=== PATIENT | male | born 1980 | race Caucasian/White ===

== ENCOUNTER 2016-07-23 16:35 | Emergency (ER) | payer BC ==
[2016-07-23] MEDS ORDERED: Sodium Chloride 0.9% 5 ML Syringe FLUSH PRN (16:43)
[2016-07-23] MEDS ORDERED: Sodium Chloride 0.9% 1,000 ML IV SCH (16:45)
[2016-07-23] MEDS ORDERED: LORazepam 2 MG/ML MDV IVPUSH ONE ×2 (16:46→18:00)
--- NOTE | 2016-07-23 17:10 | EDM.PDOC ---
ED HPI GENERAL MEDICAL PROBLEM - General Chief Complaint: Behavioral/Psych Stated Complaint: PANIC ATTACK Time Seen by Provider: 07/23/16 16:43 Source of Information: Reports: Patient, EMS History Limitations: Reports: No limitations - History of Present Illness INITIAL COMMENTS - FREE TEXT/NARRATIVE: PT STATES HE ASKED [employer] TO CALL 911 WHEN HE FELT PANIC ATTACK COMING ON AND COLLAPSED TO GROUND. PT FOUND TO BE IN SINUS TACHYCARDIA BY EMS AND TRANSPORTED TO ER. PT HAS H/O PANIC ATTACKS AND HAD DISAGREEMENT WITH [employer] TODAY. DENIES CP, SOB, N/V, INTENT TO HURT SELF OR OTHERS. Onset: today Onset Date: 07/23/16 Severity: moderate Improves with: Reports: None Worsens with: Reports: None Associated Symptoms: Reports: no other symptoms. Denies: chest pain, fever/ chills, nausea/vomiting, shortness of breath - Related Data Allergies Allergy/AdvReac Type Severity Reaction Status Date / Time No Known Drug Allergies Allergy Cannot Verified 05/13/15 13:08 Remember Home Meds: Home Meds ALPRAZolam [Alprazolam] 0.5 - 1 mg PO BID PRN 07/23/16 [History] PARoxetine HCl [Paxil] 40 mg PO DAILY 07/23/16 [History] Past Medical History Psychiatric History: Reports: Anxiety, Depression - Past Surgical History HEENT Surgical History: Reports: Adenoidectomy, Tonsillectomy Neurological Surgical History: Reports: C-Spine Social & Family History - Alcohol Use Days Per Week of Alcohol Use: 7 Number of Drinks Per Day: 6 Total Drinks Per Week: 42 - Recreational Drug Use Recreational Drug Use: No ED ROS GENERAL - Review of Systems Review Of Systems: ROS reveals no pertinent complaints other than HPI. Constitutional: Reports: no symptoms HEENT: Reports: No symptoms Respiratory: Reports: No Symptoms Cardiovascular: Reports: No symptoms Endocrine: Reports: no symptoms GI/Abdominal: Reports: No symptoms : Reports: no symptoms Musculoskeletal: Reports: no symptoms Skin: Reports: no symptoms Neurological: Reports: No Symptoms Psychiatric: Reports: Agitation, Anxiety. Denies: Homicidal ideation, Suicidal ideation Hematologic/Lymphatic: Reports: no symptoms Immunologic: Reports: no symptoms ED EXAM, GENERAL - Physical Exam Exam: See Below Exam Limited By: No limitations General Appearance: alert, WD/WN, mild distress Eye Exam: bilateral eye: normal inspection Nose: normal inspection, normal mucosa, no blood Throat/Mouth: Normal inspection, Normal oropharynx, No airway compromise Head: atraumatic, normocephalic Neck: normal inspection, supple, non-tender, full range of motion Respiratory/Chest: no respiratory distress, lungs clear, normal breath sounds, no accessory muscle use, chest non-tender Cardiovascular: no murmur, tachycardia GI/Abdominal: normal bowel sounds, soft, non tender Back Exam: normal inspection. No: CVA tenderness (L), CVA tenderness (R) Extremities: normal inspection, normal range of motion, non-tender, no pedal edema Neurological: alert, oriented, CN II-XII intact, normal cognition Psychiatric: anxious Skin Exam: Warm, Dry, Intact, Normal color, No rash Lymphatic: no adenopathy EKG INTERPRETATION EKG Date: 07/23/16 Time: 17:00 Rate (beats/min): 105 ST-T: other (NONSPECIFIC) Comparison: NA - no prior EKG EKG Interpretation Comments: SINUS TACHYCARDIA Course - Vital Signs Last Recorded V/S: Last Vital Signs Temp 98.2 F 07/23/16 16:43 Pulse 113 H 07/23/16 16:43 Resp 21 H 07/23/16 16:43 BP 207/110 H 07/23/16 16:43 Pulse Ox 95 07/23/16 16:43 - Orders/Labs/Meds Orders: Active Orders 24 hr Category Date Time Status EKG Documentation Completion [RC] ASDIRECTED Care 07/23/16 16:45 Ordered Peripheral IV Care [RC] . DIRECTED Care 07/23/16 16:45 Ordered Chest 1V Frontal [CR] Stat Exams 07/23/16 16:43 Ordered COMPREHENSIVE METABOLIC PN,CMP [CHEM] Stat Lab 07/23/16 16:44 Ordered DRUG SCREEN, URINE [URCHEM] Stat Lab 07/23/16 16:47 Uncollected ETHANOL BLOOD MEDICAL [CHEM] Stat Lab 07/23/16 16:43 Ordered TROPONIN I [CHEM] Stat Lab 07/23/16 16:44 Ordered UA W/MICROSCOPIC [URIN] Stat Lab 07/23/16 16:44 Uncollected Sodium Chloride 0.9% [Normal Saline] 1,000 ml Med 07/23/16 16:45 Ordered IV .BOLUS Sodium Chloride 0.9% [Syrex Flush] Med 07/23/16 16:43 Ordered 5 ml FLUSH Q8HR PRN Peripheral IV Insertion Adult [OM.PC] Stat Oth 07/23/16 16:43 Ordered EKG 12 Lead [EK] Stat Ther 07/23/16 16:43 Ordered Medication Orders Sodium Chloride (Normal Saline) 1,000 mls @ 999 mls/hr IV .BOLUS BRUNO Sodium Chloride (Syrex Flush) 5 ml FLUSH Q8HR PRN PRN Reason: Keep Vein Open Labs: Laboratory Tests 07/23/16 Range/Units 16:10 WBC 6.3 (5.0-10.0) 10^3/uL RBC 5.50 (4.50-6.00) 10^6/uL Hgb 17.7 H (13.0-17.0) g/dL Hct 52.6 H (40.0-52.0) % MCV 95.6 H (82.0-92.0) fL MCH 32.1 H (27.0-31.0) pg MCHC 33.6 (32.0-36.0) g/dL RDW 12.9 (11.5-14.5) % Plt Count 173 (150-300) 10^3/uL MPV 7.5 (7.4-10.4) fL Neut % (Auto) 67.2 (50.0-70.0) % Lymph % (Auto) 20.9 (20.0-40.0) % [place] % (Auto) 10.4 H (2.0-8.0) % Eos % (Auto) 0.6 L (1.0-3.0) % Baso % (Auto) 0.9 (0.0-1.0) % Neut # (Auto) 4.2 (2.5-7.0) 10^3/uL Lymph # (Auto) 1.3 (1.0-4.0) 10^3/uL [place] # (Auto) 0.7 (0.1-0.8) 10^3/uL Eos # (Auto) 0.0 L (0.1-0.3) 10^3/uL Baso # (Auto) 0.1 (0.0-0.1) 10^3/uL Meds: Medications Generic Name Dose Route Start Last Admin Trade Name Freq PRN Reason Stop Dose Admin Sodium Chloride 1,000 mls @ 999 mls/hr 07/23/16 16:45 Normal Saline IV .BOLUS BRUNO Sodium Chloride 5 ml 07/23/16 16:43 Syrex Flush FLUSH Q8HR PRN Keep Vein Open Discontinued Medications Generic Name Dose Route Start Last Admin Trade Name Joseq PRN Reason Stop Dose Admin Lorazepam 1 mg 07/23/16 16:46 07/23/16 16:51 Ativan IVPUSH 07/23/16 16:47 1 mg ONETIME ONE Administration - Radiology Interpretation Free Text/Narrative:: CXR NEGATIVE FOR ACUTE PROCESS - Re-Assessments/Exams Free Text/Narrative Re-Assessment/Exam: 07/23/16 18:52 PT AFEBRILE, NONTOXIC APPEARING, VSS, FEELS MUCH BETTER, FAMILY AT BEDSIDE. REPEAT EKG SHOWS NSR AT 94 WITH NO S-T CHANGES 07/23/16 18:56 Departure - Departure Time of Disposition: 18:54 Disposition: Home, Self-Care 01 Condition: good Clinical Impression: Anxiety attack, Anxiety, Panic attack Instructions: Panic Attacks, [id number] Additional Instructions: FOLLOW UP AT [facility]. RETURN TO ER IF SYMPTOMS CONTINUE - My Orders Last 24 Hours: My Active Orders 07/23/16 16:43 Chest 1V Frontal [CR] Stat ETHANOL BLOOD MEDICAL [CHEM] Stat Sodium Chloride 0.9% [Syrex Flush] 5 ml FLUSH Q8HR PRN Peripheral IV Insertion Adult [OM.PC] Stat EKG 12 Lead [EK] Stat 07/23/16 16:44 COMPREHENSIVE METABOLIC PN,CMP [CHEM] Stat TROPONIN I [CHEM] Stat UA W/MICROSCOPIC [URIN] Stat 07/23/16 16:45 EKG Documentation Completion [RC] ASDIRECTED Peripheral IV Care [RC] . DIRECTED Sodium Chloride 0.9% [Normal Saline] 1,000 ml IV .BOLUS 07/23/16 16:47 DRUG SCREEN, URINE [URCHEM] Stat - Assessment/Plan Last 24 Hours: My Active Orders 07/23/16 16:43 Chest 1V Frontal [CR] Stat ETHANOL BLOOD MEDICAL [CHEM] Stat Sodium Chloride 0.9% [Syrex Flush] 5 ml FLUSH Q8HR PRN Peripheral IV Insertion Adult [OM.PC] Stat EKG 12 Lead [EK] Stat 07/23/16 16:44 COMPREHENSIVE METABOLIC PN,CMP [CHEM] Stat TROPONIN I [CHEM] Stat UA W/MICROSCOPIC [URIN] Stat 07/23/16 16:45 EKG Documentation Completion [RC] ASDIRECTED Peripheral IV Care [RC] . DIRECTED Sodium Chloride 0.9% [Normal Saline] 1,000 ml IV .BOLUS 07/23/16 16:47 DRUG SCREEN, URINE [URCHEM] Stat Assessment:: ANXIETY / PANIC ATTACK Plan: WILL F/U WITH [facility] TOMORROW
[2016-07-23 17:17] LABS: CHLORIDE,CL 91 mmol/L (98-115); SODIUM,NA 133 mmol/L (136-145)
[2016-07-23 17:44] VITALS: BP 173/76
== END 2016-07-23 19:15 | disposition home or self-care (01) ==
LOC: KA.ED 16:35
DX: F41.0 Panic disorder [episodic paroxysmal anxiety] (principal); F32.9 Major depressive disorder, single episode, unspecified; Z98.890 Other specified postprocedural states; Z79.899 Other long term (current) drug therapy
CPT/HCPCS: 71010; 80053; 80305; 81001; 84484; 85025; 96361; 96374; 96376; 99284; G0480; J2060; J7030; 93005

== ENCOUNTER 2019-01-19 10:40 | Emergency (ER) | payer BC ==
[2019-01-19 10:59] VITALS: BP 115/78; PULSE 106
[2019-01-19] MEDS: LORazepam 0.5 MG Tab PO ONE (11:07)
--- NOTE | 2019-01-19 11:16 | EDM.PDOC ---
ED HPI GENERAL MEDICAL PROBLEM - General Chief Complaint: General Stated Complaint: PANIC ATTACK Time Seen by Provider: 01/19/19 11:01 Source of Information: Reports: Patient History Limitations: Reports: No Limitations - History of Present Illness INITIAL COMMENTS - FREE TEXT/NARRATIVE: PATIENT'S A 38-YEAR-OLD GENTLEMAN WHO PRESENTS TO THE EMERGENCY DEPARTMENT THIS MORNING WITH A COMPLAINT OF PANIC ATTACK. PATIENT HAS A LONG-STANDING HISTORY OF ANXIETY AND WAS PREVIOUSLY ON XANAX. PATIENT STATES THAT HE RAN OUT OF XANAX 4 DAYS AGO. OVER LAST 4 DAYS, GRADUALLY BECOMING MORE ANXIOUS AND'S MORNING HAD A PANIC ATTACK. PATIENT DENIES CHEST PAIN, SHORTNESS OF BREATH, NAUSEA, VOMITING, ABDOMINAL PAIN, ANY INJURY, INTENT TO HURT SELF OR OTHERS. Onset: Gradual Duration: Day(s): Severity: Moderate Improves with: Reports: None Worsens with: Reports: None Associated Symptoms: Reports: No Other Symptoms. Denies: Chest Pain, Fever/ Chills, Headaches, Nausea/Vomiting, Shortness of Breath - Related Data Allergies Allergy/AdvReac Type Severity Reaction Status Date / Time No Known Drug Allergies Allergy Cannot Verified 07/24/16 10:04 Remember Home Meds: Home Meds ALPRAZolam [Alprazolam] 0.5 - 1 mg PO BID PRN 07/23/16 [History] PARoxetine HCl [Paxil] 40 mg PO DAILY 07/23/16 [History] hydroCHLOROthiazide [Hydrochlorothiazide] 50 mg PO DAILY 06/25/18 [History] Past Medical History Cardiovascular History: Reports: Hypertension Respiratory History: Reports: None Gastrointestinal History: Reports: None Genitourinary History: Reports: None Musculoskeletal History: Reports: Fracture Neurological History: Reports: Concussion, Head Trauma, Seizure Psychiatric History: Reports: Anxiety, Depression Endocrine/Metabolic History: Reports: None Immunologic History: Reports: None Oncologic (Cancer) History: Reports: None Dermatologic History: Reports: None - Infectious Disease History Infectious Disease History: Reports: Chicken Pox - Past Surgical History HEENT Surgical History: Reports: Adenoidectomy, Tonsillectomy Neurological Surgical History: Reports: C-Spine Social & Family History - Caffeine Use Caffeine Use: Reports: Soda ED ROS GENERAL - Review of Systems Review Of Systems: ROS reveals no pertinent complaints other than HPI. Constitutional: Reports: No Symptoms HEENT: Reports: No Symptoms Respiratory: Reports: No Symptoms Cardiovascular: Reports: No Symptoms Endocrine: Reports: No Symptoms GI/Abdominal: Reports: No Symptoms : Reports: No Symptoms Musculoskeletal: Reports: No Symptoms Skin: Reports: No Symptoms Neurological: Reports: No Symptoms Psychiatric: Reports: Anxiety. Denies: Homicidal Ideation, Suicidal Ideation Hematologic/Lymphatic: Reports: No Symptoms Immunologic: Reports: No Symptoms ED EXAM, GENERAL - Physical Exam Exam: See Below Exam Limited By: No Limitations General Appearance: Alert, WD/WN, Mild Distress Eye Exam: Bilateral Eye: Normal Inspection Nose: Normal Inspection, No Blood Throat/Mouth: Normal Inspection, Normal Oropharynx, No Airway Compromise Head: Atraumatic, Normocephalic Neck: Normal Inspection, Supple Respiratory/Chest: No Respiratory Distress, Lungs Clear, Normal Breath Sounds, No Accessory Muscle Use, Chest Non-Tender Cardiovascular: Regular Rate, Rhythm, No Murmur GI/Abdominal: Normal Bowel Sounds, Soft, Non-Tender Back Exam: Normal Inspection Extremities: Normal Inspection, No Pedal Edema Neurological: Alert, Oriented, Normal Cognition Psychiatric: Anxious Skin Exam: Warm, Dry, Intact, Normal Color, No Rash Course - Vital Signs Last Recorded V/S: Last Vital Signs Temp 97.2 F 01/19/19 10:56 Pulse 106 H 01/19/19 10:56 Resp 20 01/19/19 10:56 BP 115/78 01/19/19 10:56 Pulse Ox 98 01/19/19 10:56 - Orders/Labs/Meds Meds: Medications Discontinued Medications Generic Name Dose Route Start Last Admin Trade Name Gagan PRN Reason Stop Dose Admin Lorazepam 2 mg 01/19/19 11:01 Ativan PO 01/19/19 11:02 ONETIME ONE - Re-Assessments/Exams Free Text/Narrative Re-Assessment/Exam: 01/19/19 11:44 Patient afebrile, vital signs stable, 2 mg Ativan given in ER, anxiety, mostly relieved. Patient has family members in [place], and is interested in having outpatient therapy at [facility]. Patient does not want to be sent up there now but will present tomorrow. Patient is acting appropriately, denies suicidal ideation Departure - Departure Time of Disposition: 11:44 Disposition: Home, Self-Care 01 Condition: Good Clinical Impression: Anxiety, Panic attack - Discharge Information Instructions: Panic Attack, [id number], Generalized Anxiety Disorder, Adult Referrals: Sweta De Dios PA-C [Primary Care Provider] - Additional Instructions: Follow-up at tomorrow as indicated. Return to emergency department sooner if symptoms continue or worsen. Take medication as directed. - Assessment/Plan Assessment:: Anxiety Plan: Patient follow-up with PCP and is considering presenting to in [place]
== END 2019-01-19 11:50 | disposition home or self-care (01) ==
LOC: KA.ED 10:40
DX: F41.0 Panic disorder [episodic paroxysmal anxiety] (principal); I10 Essential (primary) hypertension; F41.9 Anxiety disorder, unspecified; F32.9 Major depressive disorder, single episode, unspecified; Z79.899 Other long term (current) drug therapy
CPT/HCPCS: 99283; A9270

== ENCOUNTER 2019-09-13 07:45 | Emergency (ER) | payer BC ==
[2019-09-13] MEDS: LORazepam 0.5 MG Tab PO ONE ×2 (08:02→08:51)
--- NOTE | 2019-09-13 08:40 | EDM.PDOCBH ---
ED HPI GENERAL MEDICAL PROBLEM - General Chief Complaint: Behavioral/Psych Stated Complaint: ANXIETY ATTACK Time Seen by Provider: 09/13/19 08:19 Source of Information: Reports: Patient History Limitations: Reports: No Limitations - History of Present Illness INITIAL COMMENTS - FREE TEXT/NARRATIVE: Patient presents having a panic attack. It started 12-13 hours ago. He feels very anxious and nervous. He had some sweating too. Denies any pain with it. He says he has dealt with panic attacks about every 6 months for 25 years ( since his parents did when he was 10). He hasn't taken anything for it today but in the past has used Alprazolam. Right now he is dealing with a lot of stress and has no one to talk to. He is open to talking with a professional. - Related Data Allergies Allergy/AdvReac Type Severity Reaction Status Date / Time No Known Drug Allergies Allergy Cannot Verified 09/13/19 08:00 Remember Home Meds: Home Meds PARoxetine HCL [Paxil] 40 mg PO DAILY 07/23/16 [History] hydroCHLOROthiazide [Hydrochlorothiazide] 50 mg PO DAILY 06/25/18 [History] lisinopriL [Lisinopril] 10 mg PO DAILY 09/13/19 [History] traZODone HCl [Trazodone HCl] 50 - 100 mg PO BEDTIME PRN 09/13/19 [History] Past Medical History Cardiovascular History: Reports: Hypertension Respiratory History: Reports: None Gastrointestinal History: Reports: None Genitourinary History: Reports: None Musculoskeletal History: Reports: Fracture Neurological History: Reports: Concussion, Head Trauma, Seizure Psychiatric History: Reports: Anxiety, Depression, Panic Attack Endocrine/Metabolic History: Reports: None Immunologic History: Reports: None Oncologic (Cancer) History: Reports: None Dermatologic History: Reports: None - Infectious Disease History Infectious Disease History: Reports: Chicken Pox - Past Surgical History HEENT Surgical History: Reports: Adenoidectomy, Tonsillectomy Neurological Surgical History: Reports: C-Spine Social & Family History - Family History Family Medical History: Noncontributory - Tobacco Use Smoking Status *Q: Never Smoker - Caffeine Use Caffeine Use: Reports: Coffee Other Caffeine Use: rarely - Recreational Drug Use Recreational Drug Use: No ED ROS GENERAL - Review of Systems Review Of Systems: See Below Constitutional: Denies: Fever, Chills, Weakness HEENT: Denies: Ear Pain, Throat Pain, Vision Change Respiratory: Denies: Shortness of Breath, Cough Cardiovascular: Denies: Chest Pain, Lightheadedness, Syncope Endocrine: Denies: Fatigue GI/Abdominal: Denies: Abdominal Pain, Diarrhea, Vomiting Musculoskeletal: Denies: Neck Pain, Shoulder Pain, Arm Pain, Back Pain, Hand Pain, Leg Pain, Foot Pain Skin: Denies: Cyanosis, Jaundice, Mottled, Pallor, Diaphoresis Neurological: Denies: Confusion, Dizziness, Headache, Seizure, Syncope, Trouble Speaking, Difficulty Walking Psychiatric: Reports: Anxiety. Denies: Agitation, Confusion, Suicidal Ideation ED EXAM, BEHAVIORAL HEALTH - Physical Exam Exam: See Below Exam Limited By: No Limitations General Appearance: Alert, WD/WN, No Apparent Distress Eye Exam: Bilateral Eye: EOMI, Normal Inspection, PERRL Ears: Normal External Exam, Hearing Grossly Normal Nose: Normal Inspection, No Blood Throat/Mouth: Normal Inspection, Normal Lips, Normal Teeth, Normal Voice, No Airway Compromise Head: Atraumatic, Normocephalic Neck: Normal Inspection, Full Range of Motion Respiratory/Chest: No Respiratory Distress, Lungs Clear, Normal Breath Sounds, No Accessory Muscle Use Cardiovascular: Regular Rate, Rhythm (a little tachy initially) Back Exam: Normal Inspection, Full Range of Motion Extremities: Normal Inspection, Normal Range of Motion Neurological: Alert, CN II-XII Intact, Normal Cognition, No Motor/Sensory Deficits, Oriented x 3 Psychiatric: Alert, Normal Affect, Normal Cognition, Oriented, Other (anxious). No: Flat Affect, Tearful, Agitated, Disoriented, Inattentive, Non- Communicative, Poor Eye Contact, Uncooperative, Withdrawn, Flight of Ideas, Homicidal Thoughts, Suicidal Plan, Suicidal Thoughts, Threatening Behavior Skin Exam: Warm, Dry, Intact, Normal color, No rash COURSE, BEHAVIORAL HEALTH COMP - Course Vital Signs: Last Vital Signs Temp 94.7 F L 09/13/19 07:47 Pulse 119 H 09/13/19 07:47 Resp 24 H 09/13/19 07:47 BP 144/97 H 09/13/19 07:47 Pulse Ox 98 09/13/19 07:47 Orders, Labs, Meds: Medications Discontinued Medications Generic Name Dose Route Start Last Admin Trade Name Gagan PRN Reason Stop Dose Admin Lorazepam 1 mg 09/13/19 07:56 09/13/19 08:02 Ativan PO 09/13/19 07:57 1 mg ONETIME ONE Administration Re-Assessment/Re-Exam: Patient has had Lorazepam 1 mg twice in ER and is significantly improved. He is feeling okay to go home now and is having a friend pick him up. He doesn't want to see the counselor today as he just wants to sleep. He will call her for appointment if he doesn't hear from her. We will give him a few doses of Lorazepam today. Discharged to home in stable condition. Departure - Departure Time of Disposition: Disposition: Home, Self-Care 01 Condition: Good Clinical Impression: Panic attack, Anxiety - Discharge Information Instructions: Panic Attack, [id number] Additional Instructions: Drink 8 cups of water daily. Try to rest today, you may use Melatonin 1-3 mg to help with this. You can take Lorazepam 1 mg if needed for panic or anxiety. Counselor Saul Maxwell may call you to schedule a visit or you can call her at if you don't hear from her today. I recommend follow up with your PCP, Sweta De Dios for recheck and to discuss possible medical treatment options for your anxiety if needed. Sepsis Event Note - Evaluation Sepsis Screening Result: No Definite Risk - Focused Exam Vital Signs: Vital Signs Temp Pulse Resp BP Pulse Ox 09/13/19 07:47 94.7 F L 119 H 24 H 144/97 H 98 Date Exam was Performed: 09/13/19 Time Exam was Performed: 08:30
[2019-09-13 09:44] VITALS: BP 129/96; PULSE 90
== END 2019-09-13 09:25 | disposition home or self-care (01) ==
LOC: KA.ED 07:45
DX: F41.0 Panic disorder [episodic paroxysmal anxiety] (principal); I10 Essential (primary) hypertension; F32.9 Major depressive disorder, single episode, unspecified; Z79.899 Other long term (current) drug therapy
CPT/HCPCS: 99283; A9270

== ENCOUNTER 2020-03-05 14:22 | Emergency (ER) | payer BC, OTHER ==
[2020-03-05] MEDS ORDERED: Ketorolac 60 MG/2 ML SDV IM ONE (14:33)
--- NOTE | 2020-03-05 14:43 | EDM.PDOC ---
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 Lumps of dirt struck the left chest with the discomfort, significant pain to the right shoulder limiting his motion. No loss consciousness and no other complaint acknowledged. Onset: Today, Sudden Duration: Hour(s): Location: Reports: Chest, Upper Extremity, Right Quality: Reports: Pressure, Sharp Severity: Moderate Improves with: Reports: None Worsens with: Reports: Movement Context: Reports: Other (Work related) Right Shoulder Pain Score (Numeric/FACES): 8 - Related Data Allergies Allergy/AdvReac Type Severity Reaction Status Date / Time No Known Drug Allergies Allergy Cannot Verified 03/05/20 14:47 Remember Home Meds: Home Meds PARoxetine HCL [Paxil] 40 mg PO DAILY 07/23/16 [History] hydroCHLOROthiazide [Hydrochlorothiazide] 50 mg PO DAILY 06/25/18 [History] lisinopriL [Lisinopril] 10 mg PO DAILY 09/13/19 [History] traZODone HCl [Trazodone HCl] 50 - 100 mg PO BEDTIME PRN 09/13/19 [History] Hydrocodone/Acetaminophen [Hydrocodone-Acetamin 10-325 mg] 1 each PO Q6HR PRN 7 Days #28 tablet 03/05/20 [Rx] Ibuprofen 800 mg PO TIDMEALS 10 Days #30 tablet 03/05/20 [Rx] Past Medical History Cardiovascular History: Reports: Hypertension Respiratory History: Reports: None Gastrointestinal History: Reports: None Genitourinary History: Reports: None Musculoskeletal History: Reports: Fracture Neurological History: Reports: Concussion, Head Trauma, Seizure Psychiatric History: Reports: Anxiety, Depression, Panic Attack Endocrine/Metabolic History: Reports: None Immunologic History: Reports: None Oncologic (Cancer) History: Reports: None Dermatologic History: Reports: None - Infectious Disease History Infectious Disease History: Reports: Chicken Pox - Past Surgical History HEENT Surgical History: Reports: Adenoidectomy, Tonsillectomy Neurological Surgical History: Reports: C-Spine Social & Family History - Family History Family Medical History: No Pertinent Family History - Caffeine Use Caffeine Use: Reports: Coffee Other Caffeine Use: rarely ED ROS GENERAL - Review of Systems Review Of Systems: Comprehensive ROS is negative, except as noted in HPI. ED EXAM, GENERAL - Physical Exam Exam: See Below Free Text/Narrative:: Alert, oriented, in mild painful distress. HEENT is negative to discharge or deformity. PERRLA no icterus, no injection, no petechia. Neck is soft supple no rigidity no lymphadenopathy noted, no spinal tenderness. Thorax is clear, no wheezes, no crackles, no tenderness of significance to the chest wall on the right side. Mild tissue tenderness on the left side where he was struck by the direct lumps. Cardiac is S1 is 2 I do not appreciate murmur. Radial pulses are present and correlate with apical heart rate. Motion to the forearm hand and wrist are intact bilateral. Mild numbness sensation with positioning of the right shoulder to the anterior forearm. Tenderness to the right anterior, superior, and posterior shoulder girdle to palpation. There is tenderness to the proximal deltoid of the right shoulder. Limited range of motion of the right shoulder with rotation limited. Unable to raise the humerus with abduction. X-rays obtained show no occult fracture, nor dislocation. Course - Vital Signs Last Recorded V/S: Last Vital Signs Temp 36.6 C 03/05/20 15:12 Pulse 70 03/05/20 15:12 Resp 18 03/05/20 15:12 BP 139/94 H 03/05/20 15:12 Pulse Ox 100 03/05/20 15:12 - Orders/Labs/Meds Orders: Active Orders 24 hr Category Date Time Status Consult to Physical Therapy [PT Evaluation and Cons 03/05/20 15:10 Ordered Treatment] [CONS] Routine Shoulder wo Cont Rt [MR] Stat Exams 03/05/20 15:11 Ordered Meds: Medications Discontinued Medications Generic Name Dose Route Start Last Admin Trade Name Freq PRN Reason Stop Dose Admin Ketorolac Tromethamine 60 mg 03/05/20 14:33 03/05/20 14:37 Toradol IM 03/05/20 14:34 60 mg ONETIME ONE Administration - Radiology Interpretation Free Text/Narrative:: No evidence of fracture nor dislocation. Over read pending Departure - Departure Time of Disposition: 15:02 Disposition: Home, Self-Care 01 Condition: Good Clinical Impression: Right shoulder strain, Rotator cuff dysfunction, Encounter related to worker's compensation claim - Discharge Information *PRESCRIPTION DRUG MONITORING PROGRAM REVIEWED*: Not Applicable *COPY OF PRESCRIPTION DRUG MONITORING REPORT IN PATIENT NATHALY: Not Applicable Prescriptions: Hydrocodone/Acetaminophen [Hydrocodone-Acetamin 10-325 mg] 1 each PO Q6HR PRN 7 Days #28 tablet PRN Reason: Pain (Moderate 4-6) Ibuprofen 800 mg PO TIDMEALS 10 Days #30 tablet Referrals: Sweta De Dios PA-C [Primary Care Provider] - Forms: ED Department Discharge Additional Instructions: X-rays show no fracture of the bone nor ribs. We will process paperwork to [facility] as you will need an MRI of your right shoulder. Limit your activity as tolerated. Ice and heat rotation to the shoulder and chest area. We will send a prescription to your pharmacy for pain medication that you may take to help your discomfort for severe pain. You may take Tylenol or ibuprofen limiting the total use of ibuprofen to 3000 mg/day. Make sure to have good fluid intake, predominantly water, to flush metabolites from your system. Contact your clinic for follow-up, or contact the hospital during nonclinic hours if severe pain should worsen, or limit your breathing. Sepsis Event Note (ED) - Focused Exam Vital Signs: Vital Signs Temp Pulse Resp BP Pulse Ox 03/05/20 15:12 36.6 C 70 18 139/94 H 100 03/05/20 14:42 36.2 C 78 20 145/89 H 100 - Problem List & Annotations (1) Right shoulder strain SNOMED Code(s): 922628035 Code(s): S46.911A - STRAIN UNSP MUSC/FASC/TEND AT SHLDR/UP ARM, RIGHT ARM, INIT Status: Acute Priority: High Current Visit: Yes Qualifiers: Encounter type: initial encounter Qualified Code(s): S46.911A - Strain of unspecified muscle, fascia and tendon at shoulder and upper arm level, right arm, initial encounter (2) Rotator cuff dysfunction SNOMED Code(s): 354776318 Code(s): M67.919 - UNSP DISORDER OF SYNOVIUM AND TENDON, UNSPECIFIED SHOULDER Status: Acute Priority: High Current Visit: Yes Qualifiers: Laterality: right Qualified Code(s): M67.911 - Unspecified disorder of synovium and tendon, right shoulder (3) Encounter related to worker's compensation claim SNOMED Code(s): 736781625 Code(s): Z02.6 - ENCOUNTER FOR EXAMINATION FOR INSURANCE PURPOSES Status: Acute Priority: High Current Visit: Yes - Problem List Review Problem List Initiated/Reviewed/Updated: Yes - My Orders Last 24 Hours: My Active Orders 03/05/20 15:10 Consult to Physical Therapy [PT Evaluation and Treatment] [CONS] Routine 03/05/20 15:11 Shoulder wo Cont Rt [MR] Stat - Assessment/Plan Last 24 Hours: My Active Orders 03/05/20 15:10 Consult to Physical Therapy [PT Evaluation and Treatment] [CONS] Routine 03/05/20 15:11 Shoulder wo Cont Rt [MR] Stat Plan: X-rays show no fracture of the bone nor ribs. We will process paperwork to [facility] as you will need an MRI of your right shoulder. Limit your activity as tolerated. Ice and heat rotation to the shoulder and chest area. We will send a prescription to your pharmacy for pain medication that you may take to help your discomfort for severe pain. You may take Tylenol or ibuprofen limiting the total use of ibuprofen to 3000 mg/day. Make sure to have good fluid intake, predominantly water, to flush metabolites from your system. Contact your clinic for follow-up, or contact the hospital during nonclinic hours if severe pain should worsen, or limit your breathing.
--- NOTE | 2020-03-05 15:10 | CR ---
[id number] RAD/RAD Chest PA And Lateral EXAM: RAD Chest PA And Lateral CLINICAL DATA: TRAUMA COMPARISON: CORRELATION IS MADE WITH JULY 23, 2016 FINDINGS: The lungs are clear. The cardiomediastinal contour is normal. The regional bones and soft tissues are unremarkable. IMPRESSION: NO ACUTE PROCESS. Shabbir Martinez MD 03/05/20 1585 Thank you for allowing us to participate in the care of your patient.
--- NOTE | 2020-03-05 15:10 | CR ---
[id number] RAD/RAD Shoulder Right 2V Min EXAM: RAD Shoulder Right 2V Min CLINICAL DATA: TRAUMA COMPARISON: NO PREVIOUS SIMILAR EXAM IS AVAILABLE. FINDINGS: Calcification is seen between the acromion and distal clavicle No fracture or dislocation is seen. There is no radiopaque foreign body in the soft tissues. There is no air in the soft tissues. There is no cortical thickening or periosteal reaction either. IMPRESSION: DEGENERATIVE CHANGES OF RIGHT ACROMIOCLAVICULAR JOINT Shabbir Martinez MD 03/05/20 2145 Thank you for allowing us to participate in the care of your patient.
[2020-03-05 15:15] VITALS: BP 139/94; PULSE 70
== END 2020-03-05 15:25 | disposition home or self-care (01) ==
LOC: KA.ED 14:22
DX: S46.911A Strain of unspecified muscle, fascia and tendon at shoulder and upper arm level, right arm, initial encounter (principal); I10 Essential (primary) hypertension; F41.9 Anxiety disorder, unspecified; F32.9 Major depressive disorder, single episode, unspecified; Z79.899 Other long term (current) drug therapy; W22.8XXA Striking against or struck by other objects, initial encounter; Y92.89 Other specified places as the place of occurrence of the external cause; Y99.0 Civilian activity done for income or pay
CPT/HCPCS: 71046; 73030-RT; 96372; 99283; 99284-25; J1885

== ENCOUNTER 2020-09-24 11:42 | Emergency (ER) | payer BC, OTHER ==
[2020-09-24] MEDS: LORazepam 2 MG/ML SDV IVPUSH ONE (11:52)
--- NOTE | 2020-09-24 12:01 | EDM.PDOC ---
ED HPI GENERAL MEDICAL PROBLEM - General Chief Complaint: General Stated Complaint: ANXIETY ATTACK Time Seen by Provider: 09/24/20 11:44 Source of Information: Reports: Patient, Significant Other History Limitations: Reports: No Limitations - History of Present Illness INITIAL COMMENTS - FREE TEXT/NARRATIVE: Patient presents with a "panic attack". He has had them several times in the past and has a bad one about once a year. This started two hours ago he says. He takes Paxil but missed it today. When he has an attack like this he says it responds to benzodiazepines. He has chest pain which is consistent with past episodes. He also has some numbness in fingers bilat. No history of heart disease or problems. - Related Data Allergies Allergy/AdvReac Type Severity Reaction Status Date / Time No Known Drug Allergies Allergy Cannot Verified 09/24/20 12:00 Remember Home Meds: Home Meds PARoxetine HCL [Paxil] 40 mg PO DAILY 07/23/16 [History] hydroCHLOROthiazide [Hydrochlorothiazide] 50 mg PO DAILY 06/25/18 [History] lisinopriL [Lisinopril] 10 mg PO DAILY 09/13/19 [History] traZODone HCl [Trazodone HCl] 50 - 100 mg PO BEDTIME PRN 09/13/19 [History] Hydrocodone/Acetaminophen [Hydrocodone-Acetamin 10-325 mg] 1 each PO Q6HR PRN 7 Days #28 tablet 03/05/20 [Rx] Ibuprofen 800 mg PO TIDMEALS 10 Days #30 tablet 03/05/20 [Rx] Past Medical History Cardiovascular History: Reports: Hypertension Respiratory History: Reports: None Gastrointestinal History: Reports: None Genitourinary History: Reports: None Musculoskeletal History: Reports: Fracture Neurological History: Reports: Concussion, Head Trauma, Seizure Psychiatric History: Reports: Anxiety, Depression, Panic Attack Endocrine/Metabolic History: Reports: None Immunologic History: Reports: None Oncologic (Cancer) History: Reports: None Dermatologic History: Reports: None - Infectious Disease History Infectious Disease History: Reports: Chicken Pox - Past Surgical History HEENT Surgical History: Reports: Adenoidectomy, Tonsillectomy GI Surgical History: Reports: None Endocrine Surgical History: Reports: None Neurological Surgical History: Reports: C-Spine Social & Family History - Family History Family Medical History: No Pertinent Family History - Caffeine Use Caffeine Use: Reports: Coffee Other Caffeine Use: 3-4 cups of cofee a day. ED ROS GENERAL - Review of Systems Review Of Systems: See Below Constitutional: Denies: Fever, Chills, Malaise, Weakness HEENT: Reports: No Symptoms Respiratory: Denies: Shortness of Breath Cardiovascular: Reports: Chest Pain, Lightheadedness (from hyperventilating). Denies: Syncope GI/Abdominal: Denies: Abdominal Pain, Vomiting : Reports: No Symptoms Musculoskeletal: Reports: No Symptoms Skin: Reports: No Symptoms Neurological: Reports: Tingling (fingers). Denies: Confusion, Dizziness, Headache, Seizure, Syncope, Trouble Speaking, Difficulty Walking Psychiatric: Reports: Anxiety. Denies: Confusion ED EXAM, GENERAL - Physical Exam Exam: See Below Exam Limited By: No Limitations General Appearance: Alert, WD/WN, No Apparent Distress Eye Exam: Bilateral Eye: EOMI, Normal Inspection, PERRL Ears: Normal External Exam, Hearing Grossly Normal Nose: Normal Inspection, No Blood Throat/Mouth: Normal Inspection, Normal Lips, Normal Voice, No Airway Compromise Head: Atraumatic, Normocephalic Neck: Normal Inspection, Full Range of Motion Respiratory/Chest: Lungs Clear, No Accessory Muscle Use, Wheezing (mildly present with the significant tachypnea). No: Stridor Cardiovascular: Normal Peripheral Pulses, Regular Rate, Rhythm, No Edema, No Murmur Back Exam: Normal Inspection, Full Range of Motion Extremities: Normal Inspection, Normal Range of Motion, Non-Tender, No Pedal Edema Neurological: Alert, Oriented, Normal Cognition, No Motor/Sensory Deficits Psychiatric: Anxious Skin Exam: Warm, Dry, Intact, Normal Color, No Rash Course - Vital Signs Last Recorded V/S: Last Vital Signs Temp 98.2 F 09/24/20 12:18 Pulse 70 09/24/20 12:18 Resp 18 09/24/20 12:18 BP 172/102 H 09/24/20 12:18 Pulse Ox 92 L 09/24/20 12:18 - Orders/Labs/Meds Orders: Active Orders 24 hr Category Date Time Status EKG 12 Lead [EK] Stat Ther 09/24/20 11:55 Ordered Labs: Laboratory Tests 09/24/20 09/24/20 Range/Units 12:10 12:10 WBC 6.70 (5.00-10.00) 10^3/uL RBC 5.62 (4.50-6.00) 10^6/uL Hgb 16.3 (13.0-17.0) g/dL Hct 48.0 (40.0-52.0) % MCV 85.4 D (82.0-92.0) fL MCH 29.0 (27.0-31.0) pg MCHC 34.0 (32.0-36.0) g/dL RDW 12.6 (11.5-14.5) % Plt Count 213 (150-400) 10^3/uL MPV 8.9 (7.4-10.4) fL Immature Gran % (Auto) 0.4 (0.0-5.0) % Neut % (Auto) 58.6 (50.0-70.0) % Lymph % (Auto) 32.8 (20.0-40.0) % O'Brien % (Auto) 6.9 (2.0-8.0) % Eos % (Auto) 0.9 L (1.0-3.0) % Baso % (Auto) 0.4 (0.0-1.0) % Neut # (Auto) 3.92 (2.50-7.00) 10^3/uL Lymph # (Auto) 2.20 (1.00-4.00) 10^3/uL O'Brien # (Auto) 0.46 (0.10-0.80) 10^3/uL Eos # (Auto) 0.06 L (0.10-0.30) 10^3/uL Baso # (Auto) 0.03 (0.00-0.10) 10^3/uL Immature Gran # (Auto) 0.03 (0.00-0.50) 10^3/uL Sodium 137 (136-145) mmol/L Potassium 4.1 (3.5-5.1) mmol/L Chloride 101 (98-107) mmol/L Carbon Dioxide 22.5 (21.0-32.0) mmol/L Anion Gap 17.6 H (5-15) mmol/L BUN 14 (7-18) mg/dL Creatinine 1.13 (0.51-1.17) mg/dL Est Cr Clr Drug Dosing 93.47 mL/min Estimated GFR (MDRD) > 60 mL/min Glucose 110 (70-140) mg/dL Calcium 9.3 (8.7-10.3) mg/dL Total Bilirubin 0.5 (0.2-1.0) mg/dL AST 23 (15-37) U/L ALT 46 (14-63) U/L Alkaline Phosphatase 70 (46-116) U/L Troponin I High Sens < 4.000 (0-76.000) pg/mL Total Protein 7.4 (6.4-8.2) g/dL Albumin 4.29 (3.40-5.00) g/dL Meds: Medications Discontinued Medications Generic Name Dose Route Start Last Admin Trade Name Freq PRN Reason Stop Dose Admin Lorazepam 1 mg 09/24/20 11:46 09/24/20 11:52 Lorazepam 2 Mg/Ml Sdv IVPUSH 09/24/20 11:47 1 mg ONETIME ONE Administration - Re-Assessments/Exams Free Text/Narrative Re-Assessment/Exam: 09/24/20 12:05 [address] No [address] changes. 09/24/20 13:16 Labs okay. Patient is feeling much better now. He feels ready to go home but would like a few Lorazepam if possible to have available. He used to have some in the past for episodes but hasn't needed them for quite awhile. He also wonders if his Paxil isn't working as well as he'd like. We discussed findings and recommendations. I gave him a Rx for Lorazepam 0.5 mg #12 to take 1 po q8h prn anxiety. No refills. He is discharged to home in stable condition. Departure - Departure Time of Disposition: 13:10 Disposition: Home, Self-Care 01 Condition: Good Clinical Impression: Panic attack, Anxiety - Discharge Information Instructions: Panic Attack, [id number], Managing Anxiety, Adult Referrals: Sweta De Dios PA-C [Primary Care Provider] - Forms: ED Department Discharge Additional Instructions: You can take Lorazepam as directed if panic or anxiety returns. Continue your Paxil as directed. Follow up with your PCP for recheck and to discuss treatment regimen. Sepsis Event Note (ED) - Focused Exam Vital Signs: Vital Signs Temp Pulse Resp BP Pulse Ox 09/24/20 12:18 98.2 F 70 18 172/102 H 92 L 09/24/20 12:01 98 F 104 H 34 H 150/99 H 100 - My Orders Last 24 Hours: My Active Orders 09/24/20 11:55 EKG 12 Lead [EK] Stat - Assessment/Plan Last 24 Hours: My Active Orders 09/24/20 11:55 EKG 12 Lead [EK] Stat
[2020-09-24 12:19] VITALS: BP 172/102; PULSE 70
[2020-09-24 12:42] LABS: ANION GAP 17.6 mmol/L (5-15); CHLORIDE,CL 101 mmol/L (98-107); SODIUM,NA 137 mmol/L (136-145)
== END 2020-09-24 13:35 | disposition home or self-care (01) ==
LOC: KA.ED 11:42
DX: F41.0 Panic disorder [episodic paroxysmal anxiety] (principal); I10 Essential (primary) hypertension; Z79.899 Other long term (current) drug therapy
CPT/HCPCS: 36415; 80053; 84484; 85025; 93005; 96374; 99283-25; 99284; J2060

== ENCOUNTER 2020-10-05 16:03 | Emergency (ER) | payer OTHER ==
[2020-10-05 16:19] VITALS: BP 133/106; PULSE 73
[2020-10-05] MEDS: LORazepam 0.5 MG Tab PO ONE ×2 (16:19→16:28)
--- NOTE | 2020-10-05 16:26 | EDM.PDOCBH ---
ED HPI GENERAL MEDICAL PROBLEM - General Chief Complaint: Behavioral/Psych Stated Complaint: PANIC ATTACK Time Seen by Provider: 10/05/20 16:14 Source of Information: Reports: Patient History Limitations: Reports: No Limitations - History of Present Illness INITIAL COMMENTS - FREE TEXT/NARRATIVE: Presents emergency room by self for acute panic attack starting this am. Patient has been dealing with anxiety his whole life. He recently had an episode at work in which he lost his temper, yelled, and compulsively quit his job that he had been working up for past 5 months that he actually enjoys doing. 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 The patient later apologized to the company however the business has not hired him back yet. The patient is quite anxious due to his recent loss of employment, and that the [employer] has not called them back yet. The patient has been taking Paxil for 20 years for anxiety he states he wonders if is still working and was given recent Ativan as needed dosing 1 mg earlier this month by his PCP. The patient quit drinking alcohol years ago, denies illicit drugs. Patient does chew tobacco. No thoughts of harming self or others. The patient takes trazodone as needed for sleep. He has no other concerns. He did not take anything today for his anxiety besides what he has scheduled to take. - Related Data Allergies Allergy/AdvReac Type Severity Reaction Status Date / Time No Known Drug Allergies Allergy Cannot Verified 10/05/20 16:09 Remember Home Meds: Home Meds PARoxetine HCL [Paxil] 40 mg PO DAILY 07/23/16 [History] lisinopriL [Lisinopril] 10 mg PO DAILY 09/13/19 [History] traZODone HCl [Trazodone HCl] 50 - 100 mg PO BEDTIME PRN 09/13/19 [History] Ibuprofen 800 mg PO TIDMEALS PRN 10/05/20 [History] Past Medical History Cardiovascular History: Reports: Hypertension Respiratory History: Reports: None Gastrointestinal History: Reports: None Genitourinary History: Reports: None Musculoskeletal History: Reports: Fracture Neurological History: Reports: Concussion, Head Trauma, Seizure Psychiatric History: Reports: Anxiety, Depression, Panic Attack Endocrine/Metabolic History: Reports: None Hematologic History: Reports: None Immunologic History: Reports: None Oncologic (Cancer) History: Reports: None Dermatologic History: Reports: None - Infectious Disease History Infectious Disease History: Reports: Chicken Pox - Past Surgical History HEENT Surgical History: Reports: Adenoidectomy, Tonsillectomy GI Surgical History: Reports: None Endocrine Surgical History: Reports: None Neurological Surgical History: Reports: C-Spine Social & Family History - Family History Family Medical History: No Pertinent Family History - Caffeine Use Caffeine Use: Reports: Soda Other Caffeine Use: 3-4 cups of cofee a day. ED ROS GENERAL - Review of Systems Review Of Systems: Comprehensive ROS is negative, except as noted in HPI. Cardiovascular: Reports: Chest Pain Psychiatric: Reports: Anxiety. Denies: Agitation, Confusion, Depression, Hallucinations, Homicidal Ideation, Mood Lability, Suicidal Ideation ED EXAM, BEHAVIORAL HEALTH - Physical Exam Exam: See Below Exam Limited By: No Limitations General Appearance: Alert, WD/WN, Anxious, Moderate Distress Head: Atraumatic, Normocephalic Respiratory/Chest: Other (mild hyperventilation on arrival, resolved after speaking with him calming him down.) Extremities: Normal Inspection, Normal Range of Motion Neurological: Alert, Normal Cognition Psychiatric: Alert, Normal Cognition, Oriented, Other (anxious and panic attack). No: Suicidal Plan, Suicidal Thoughts, Paranoid Thoughts Skin Exam: Warm, Dry, Intact. No: Diaphoretic COURSE, BEHAVIORAL HEALTH COMP - Course Orders, Labs, Meds: Medications Discontinued Medications Generic Name Dose Route Start Last Admin Trade Name Freq PRN Reason Stop Dose Admin Lorazepam 1 mg 10/05/20 16:15 Lorazepam 0.5 Mg Tab PO 10/05/20 16:16 ONETIME ONE Lorazepam 5 mg 10/05/20 16:15 Lorazepam 0.5 Mg Tab PO 10/05/20 16:16 ONETIME ONE Re-Assessment/Re-Exam: Patient was given 1 mg p.o. Ativan. Patient will follow-up with therapist in [facility] to call and schedule with a close follow-up with a PCP appointment establish care Wednesday. Patient has no suicide ideation or depression. Patient notes having anxiety and unable to control his panic attacks especially when he is unemployed and recent lost his job. That is what exacerbate the whole thing. The patient is going to his aunt and uncles who live in town and hang out for the weekend and have some close family support. I sat down with the patient had a long thorough discussion on different techniques to help with anxiety and panic disorders. Return precaution discussed with patient. Departure - Departure Time of Disposition: 16:28 Disposition: Home, Self-Care 01 Condition: Good Clinical Impression: Panic attack - Discharge Information *PRESCRIPTION DRUG MONITORING PROGRAM REVIEWED*: No *COPY OF PRESCRIPTION DRUG MONITORING REPORT IN PATIENT NATHALY: No Instructions: Panic Attack, [id number], Managing Anxiety, Adult Additional Instructions: please f/u with PCP this following week, establish care. please call and schedule to speak with the therapist that comes to [place], you need need help, please call clinic or hospital wednesday am and they will help you get contact information.
== END 2020-10-05 16:36 | disposition home or self-care (01) ==
LOC: KA.ED 16:03
DX: F41.0 Panic disorder [episodic paroxysmal anxiety] (principal); I10 Essential (primary) hypertension; Z79.899 Other long term (current) drug therapy
CPT/HCPCS: 99283; 99284; A9270-GY

== ENCOUNTER 2022-05-08 05:54 | Emergency (ER) | payer OTHER ==
[2022-05-08] MEDS: LORazepam 0.5 MG Tab PO ONE ×3 (06:05→06:52)
[2022-05-08] MEDS: LORazepam 0.5 MG Tab ONE (06:06)
[2022-05-08 06:24] VITALS: BP 146/103; PULSE 78
== END 2022-05-08 06:52 | disposition home or self-care (01) ==
LOC: KA.ED 05:54
DX: F41.9 Anxiety disorder, unspecified (principal); I10 Essential (primary) hypertension; Z79.899 Other long term (current) drug therapy
CPT/HCPCS: 99283; A9270-GY

== ENCOUNTER 2024-06-11 11:48 | Emergency (ER) | payer OTHER ==
[2024-06-11] MEDS: LORazepam 0.5 MG Tab PO ONE ×2 (11:56→12:35)
[2024-06-11 12:00] VITALS: BP 159/135; PULSE 99
== END 2024-06-11 12:36 | disposition home or self-care (01) ==
LOC: KA.ED 11:48
DX: F41.9 Anxiety disorder, unspecified (principal); I10 Essential (primary) hypertension; E66.9 Obesity, unspecified; Z68.31 Body mass index [BMI] 31.0-31.9, adult; Z79.899 Other long term (current) drug therapy
CPT/HCPCS: 99283; 99284; A9270-GY

== ENCOUNTER 2024-06-26 08:52 | Emergency (ER) | payer OTHER ==
[2024-06-26] MEDS: LORazepam 0.5 MG Tab PO ONE (09:09)
[2024-06-26 10:49] VITALS: BP 155/89; PULSE 80
== END 2024-06-26 10:20 | disposition home or self-care (01) ==
LOC: KA.ED 08:52
DX: F43.10 Post-traumatic stress disorder, unspecified (principal); F41.0 Panic disorder [episodic paroxysmal anxiety]; I10 Essential (primary) hypertension; Z79.899 Other long term (current) drug therapy
CPT/HCPCS: 99284; A9270